=== PATIENT | female | born 1970 | race Caucasian/White ===

== ENCOUNTER 2016-12-03 23:00 | Emergency (ER) ==
[2016-12-03 23:17] VITALS: BP 138/76; TEMP 98.7; BMI 25.0
[2016-12-03] MEDS ORDERED: TORADOL IM STA (23:27)
--- NOTE | 2016-12-03 23:30 | ED.PDOC ---
General ED Provider: Dr. CARMEN MILIAN Chief Complaint: Foot Pain/Injury Stated Complaint: Patient popped up the 2,3 toes, ever since she is hurting , the foot is swollen. Time Seen by Physician: 23:27 Mode of Arrival: Walk-In Information Source: Patient Nursing and Triage Documentation Reviewed and Agree: Yes Musculoskeletal Complaint Exam - Ankle/Foot Complaint/Exam Location of Injury: Reports: Right, Foot, Toe #2, Toe #3 Mechanism of Injury: Reports: Trauma Symptoms Are: Reports: Still present Onset of Pain: Reports: Immediate Initial Severity: Moderate Current Severity: Moderate Location: Reports: Discrete Character: Reports: Aching Alleviating: Reports: None Aggravating: Reports: Movement, Weight bearing, Prolonged standing Able to Bear Weight: Yes Associated Signs and Symptoms: Reports: Swelling. Denies: Redness, Bruising, Fever, Weakness, Numbness, Tingling Gout Risk Factors: Reports: None Related Surgical History: Reports: None Lower Extremity Findings: Present: Swelling Differential Diagnosis: Closed Fracture, Sprain, Bursitis Review of Systems - Review Of Systems Constitutional: Reports: No symptoms Eyes: Reports: No symptoms Ears, Nose, Mouth, Throat: Reports: No symptoms Respiratory: Reports: No symptoms Cardiac: Reports: No symptoms GI: Reports: No symptoms : Reports: No symptoms Musculoskeletal: Reports: Joint pain, Joint swelling Skin: Reports: No symptoms Neurological: Reports: No symptoms Endocrine: Reports: No symptoms Hematologic/Lymphatic: Reports: No symptoms All Other Systems: Reviewed and Negative Past Medical History - Past Medical History Previously Healthy: Yes Endocrine: Reports: None Cardiovascular: Reports: None Respiratory: Reports: Asthma Hematological: Reports: None Gastrointestinal: Reports: None Genitourinary: Reports: None Neuro/Psych: Reports: None Musculoskeletal: Reports: None Cancer: Reports: None Last Menstrual Period: 11/08/16 - Surgical History General Surgical History: Reports: Other - Family History Family History: Reports: Unknown - Social History Smoking Status: Former smoker Hx Substance Use: No Alcohol Screening: None - Immunizations Tetanus Shot up to Date: Yes Physical Exam - Physical Exam Appearance: Obese Pain Distress: Moderate Eyes: PANDA, EOMI, Conjunctiva clear ENT: Ears normal, Nose normal, Oropharynx normal Respiratory: Airway patent, Breath sounds clear, Breath sounds equal, Respirations nonlabored Cardiovascular: RRR, Pulses normal, No rub, No murmur GI/: Soft, Nontender, No masses, Bowel sounds normal, No Organomegaly Musculoskeletal: Normal strength, ROM intact, No edema, No calf tenderness Skin: Warm, Dry, Normal color Neurological: Sensation intact, Motor intact, Reflexes intact, Cranial nerves intact, Alert, Oriented Psychiatric: Affect appropriate, Mood appropriate Interpretation - Radiology Interpretation Radiology Interpretation By: ED Physician Radiology Results: Negative Critical Care Note - Critical Care Note Total Time (mins): 0 Course - Course Orders, Labs, Meds: Orders Category Date Time Status Ketorolac Tromethamine [Toradol] MEDS 12/03/16 23:27 Discontinued 60 mg IM ONCE STA FOOT, RIGHT 3 VIEWS Stat RADS 12/03/16 23:26 Taken Medications Discontinued Medications Generic Name Dose Route Start Last Admin Trade Name Freq PRN Reason Stop Dose Admin Ketorolac Tromethamine 60 mg 12/03/16 23:27 12/03/16 23:41 Toradol IM 12/03/16 23:28 60 mg ONCE STA Administration Vital Signs: Temp Pulse Resp BP Pulse Ox 12/03/16 23:03 98.7 F 103 H 20 138/76 96 Departure - Departure Time of Disposition: 23:30 Disposition: HOME SELF-CARE Discharge Problem: Injury of foot Sprain of right foot Qualifiers: Encounter type: initial encounter Qualifier Code: (S93.601A) Unspecified sprain of right foot, initial encounter Instructions: Foot Sprain (ED) Condition: Stable Pt referred to PMD for follow-up: Yes Additional Instructions: rest hot pack IF NOT BETTER F/U AT [facility] Prescriptions: Hydrocodone/Acetaminophen [Hearne 5-325 Tablet] 1 tab PO TID PRN #12 tablet PRN Reason: PAIN Allergies/Adverse Reactions: Allergies latex Adverse Reaction (Verified 12/03/16 23:11) Home Medications: Ambulatory Orders Loratadine/Pseudoephedrine [Claritin-D 24 Hour Tablet] 1 each PO DAILY 11/05/15 Hydrocodone/Acetaminophen [Hearne 5-325 Tablet] 1 tab PO TID PRN #12 tablet 12/03 Disposition Discussed With: Patient
--- NOTE | 2016-12-04 00:03 | DI ---
EXAM: Three views of the right foot. HISTORY: Pain. No known injury. FINDINGS: The bones are intact with no evidence of fracture. There is limited visualization of the f ourth and fifth digits secondary to the flexion positioning. The visualized joint spaces are mainta ined. There is a small enthesophyte on the plantar margin of the calcaneus. There is soft tissue s welling in the forefoot. Impression: Soft tissue swelling in the forefoot. Calcaneal enthesophyte.
== END 2016-12-04 00:04 | disposition home or self-care (01) ==
LOC: ED 23:00
DX: S93.601A Unspecified sprain of right foot, initial encounter (principal); X50.1XXA Overexertion from prolonged static or awkward postures, initial encounter
CPT/HCPCS: 96372; 99282